=== PATIENT | male | born 1930 | race African-American/Black ===

== ENCOUNTER 2017-04-03 04:42 | Inpatient (IN) | payer MEDICARE, OTHER ==
[2017-04-03] VITALS (8 sets, daily range): BP systolic 136–189; BP diastolic 70–99
[~2017-04-03] VITALS: Ht 170.2 cm; Wt 63.5 kg
[2017-04-03] MEDS ORDERED: Albuterol ud Inhalation HHN ONE ×2 (05:00→06:45)
[2017-04-03 05:07] LABS: ABG BASE EXCESS -0.6; ABG PCO2 44.5 mmHg (35.0-45.0)
[2017-04-03 05:11] LABS: ABG ALLEN TEST POSITIVE
[2017-04-03] MEDS ORDERED: Solu-MEDROL 125mg Inj IVP ONE (05:15)
[2017-04-03 05:24] LABS: BASOPHILS % (AUTO) 0.7 % (0.0-2.0); EOSINOPHILS % (AUTO) 3.1 % (0.0-3.0); LYMPHOCYTES % (AUTO) 7.8 % (20.0-45.0); MEAN CORPUSCULAR HEMOGLOBIN 33.5 PG (27.0-31.0); MEAN CORPUSCULAR HGB CONC 34.1 G/DL (32.0-36.0); MEAN CORPUSCULAR VOLUME 98 FL (80-99); MONOCYTES % (AUTO) 9.3 % (1.0-10.0); NEUTROPHILS % (AUTO) 79.1 % (45.0-75.0); PLATELET COUNT 200 K/UL (150-450); RED BLOOD COUNT 4.54 M/UL (4.70-6.10); RED CELL DISTRIBUTION WIDTH 11.7 % (11.6-14.8); WHITE BLOOD COUNT 9.7 K/UL (4.8-10.8)
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
[2017-04-03 05:43] LABS: ANION GAP 10 (5-15); CALCIUM 9.3 mg/dL (8.6-10.2); CARBON DIOXIDE 30 mEQ/L (20-30); CHLORIDE 102 mEQ/L (98-107); CREATININE 1.4 mg/dL (0.7-1.2); HEMOLYSIS 4; POTASSIUM 3.6 mEQ/L (3.4-4.9); SODIUM 142 mEQ/L (135-145)
[2017-04-03] MEDS ORDERED: Ipratropium 0.02% Inh Soln 2.5ml UD HHN ONE (06:45)
[2017-04-03] MEDS ORDERED: LORazepam Inj 2mg/ml 1ml IV PRN ×2 (07:15→22:00)
[2017-04-03] MEDS ORDERED: DuoNeb 0.5-3(2.5)mg/3ml neb HHN PRN (07:15)
[2017-04-03] MEDS ORDERED: Ketorolac 30mg Inj IV PRN ×2 (07:15→22:00)
[2017-04-03] MEDS ORDERED: Morphine Sulfate 2mg/ml Inj IVP PRN ×2 (07:15→22:00)
[2017-04-03] MEDS ORDERED: Promethazine/Codeine 5ml UD ORAL PRN ×2 (07:15→22:00)
[2017-04-03] MEDS ORDERED: Nitroglycerin Subl 0.4mg tab (Bottle Of 25) SL PRN ×2 (07:15→21:45)
[2017-04-03] MEDS ORDERED: ATORVASTATIN CA40 MG ORAL (09:06)
[2017-04-03] MEDS ORDERED: PLAVIX75 MG ORAL (09:06)
[2017-04-03] MEDS ORDERED: ALLOPURINOL100 M1 ORAL (09:06)
[2017-04-03] MEDS ORDERED: AMLODIPINE BESYL5 MG ORAL (09:06)
[2017-04-03] MEDS ORDERED: TAMSULOSIN HCL0.4 MG ORAL (09:11)
[2017-04-03] MEDS: Ipratropium 0.02% Inh Soln 2.5ml UD HHN SCH ×3 (09:28→10:00)
[2017-04-03] MEDS: Albuterol ud Inhalation HHN SCH ×3 (09:28→10:00)
[2017-04-03] MEDS ORDERED: PROSCAR5 MG ORAL (09:41)
[2017-04-03] MEDS ORDERED: PANTOPRAZOLE SO40 MG ORAL (09:41)
[2017-04-03] MEDS ORDERED: ALBUTEROL SULF8.5 GM INH (09:42)
[2017-04-03] MEDS ORDERED: SYMBICORT 1601 PUFFS INH (09:42)
[2017-04-03] MEDS ORDERED: FLUTICASONE PRO16 G1 NASAL (09:43)
[2017-04-03] MEDS ORDERED: SPIRIVA18 MCG INH (09:43)
--- NOTE | 2017-04-03 09:49 | Diagnostic Imaging Report ---
Indication: Dyspnea Comparison: None A single view chest radiograph was obtained. Findings: No definite infiltrate or pulmonary vascular congestion identified. The heart is relatively normal in size. The aorta is mildly enlarged consistent with atherosclerotic vascular disease. The bones are osteopenic. Impression: No acute disease
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
[2017-04-03] MEDS ORDERED: Zosyn 3.375gm inj ONE (10:51)
[2017-04-03] MEDS ORDERED: Lidocaine 2% Visc 15ml soln ORAL ONE (11:00)
[2017-04-03] MEDS: Zosyn 3.375gm q8h **Extended infusion IVPB SCH ×4 (11:01→18:29)
[2017-04-03] MEDS: Theophylline ER 100mg ORAL SCH ×2 (11:04→21:04)
[2017-04-03] MEDS: Solu-MEDROL 125mg Inj IV SCH ×2 (11:53→18:30)
[2017-04-03] MEDS: Heparin 5000 units/ml inj SUBQ SCH ×2 (11:54→21:06)
[2017-04-03] MEDS ORDERED: Pneumococcal Vaccine 25mcg/0.5ml IM ONE (12:30)
[2017-04-03] MEDS ORDERED: Piperacillin/Tazobactam 2.25 GM in D5W 55 ML IV SCH (14:00)
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
--- NOTE | 2017-04-03 15:56 | History & Physical ---
History and Physical History & Physicial Pancho Meng MD Apr 03, 2017 15:56
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
[2017-04-03] MEDS ORDERED: Tamsulosin 0.4mg cap ORAL SCH (21:00)
[2017-04-03] MEDS ORDERED: Atorvastatin 80mg tab ORAL SCH (21:00)
[2017-04-03] MEDS: DuoNeb 0.5-3(2.5)mg/3ml neb HHN PRN (22:22)
[2017-04-04] VITALS: BP 157/82
[2017-04-04] MEDS ORDERED: Zosyn 3.375gm inj ONE (00:03)
[2017-04-04] MEDS: Piperacillin/Tazobactam 3.375 GM in D5W 110 ML IVPB SCH ×3 (00:12→16:57)
[2017-04-04] MEDS: Solu-MEDROL 125mg Inj IV SCH ×4 (00:12→17:03)
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
[2017-04-04 04:00] VITALS: BP 159/81
[2017-04-04 08:00] VITALS: BP 157/85
[2017-04-04] MEDS: Theophylline ER 100mg ORAL SCH ×2 (08:10→20:03)
[2017-04-04] MEDS: Allopurinol 100mg Tab ORAL SCH (08:10)
[2017-04-04] MEDS: Heparin 5000 units/ml inj SUBQ SCH ×2 (08:12→20:05)
[2017-04-04] MEDS ORDERED: Allopurinol 100mg Tab ORAL SCH (09:00)
[2017-04-04] MEDS: DuoNeb 0.5-3(2.5)mg/3ml neb HHN PRN (09:16)
[2017-04-04] MEDS: Chloraseptic Spray 20mL Bottle ORAL PRN (10:45)
[2017-04-04 12:00] VITALS: BP 156/79
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
[2017-04-04] MEDS ORDERED: DuoNeb 0.5-3(2.5)mg/3ml neb HHN ONE (14:15)
[2017-04-04] MEDS: DuoNeb 0.5-3(2.5)mg/3ml neb HHN SCH ×3 (14:34→23:15)
[2017-04-04] MEDS ORDERED: DuoNeb 0.5-3(2.5)mg/3ml neb HHN SCH (15:00)
[2017-04-04 16:00] VITALS: BP 148/76
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
[2017-04-04 20:00] VITALS: BP 149/73
[2017-04-04] MEDS: Atorvastatin 80mg tab ORAL SCH (20:04)
[2017-04-04] MEDS: Tamsulosin 0.4mg cap ORAL SCH (20:04)
[2017-04-05] VITALS (7 sets, daily range): BP systolic 144–188; BP diastolic 66–94
[2017-04-05] MEDS: Piperacillin/Tazobactam 3.375 GM in D5W 110 ML IVPB SCH ×3 (00:41→16:59)
[2017-04-05] MEDS: DuoNeb 0.5-3(2.5)mg/3ml neb HHN SCH ×6 (03:29→23:21)
[2017-04-05 07:18] LABS: MEAN CORPUSCULAR HEMOGLOBIN 32.8 PG (27.0-31.0); MEAN CORPUSCULAR HGB CONC 33.4 G/DL (32.0-36.0); MEAN CORPUSCULAR VOLUME 98 FL (80-99); MEAN PLATELET VOLUME 8.5 FL (6.5-10.1); PLATELET COUNT 214 K/UL (150-450); RED BLOOD COUNT 4.29 M/UL (4.70-6.10); RED CELL DISTRIBUTION WIDTH 11.9 % (11.6-14.8); WHITE BLOOD COUNT 20.9 K/UL (4.8-10.8)
[2017-04-05 08:01] LABS: ALANINE AMINOTRANSFERASE 24 U/L (3-41); ALBUMIN/GLOBULIN RATIO 1.4 (1.0-2.7); ANION GAP 10 (5-15); ASPARTATE AMINO TRANSFERASE 33 U/L (5-40); CALCIUM 10.4 mg/dL (8.6-10.2); CARBON DIOXIDE 30 mEQ/L (20-30); CHLORIDE 99 mEQ/L (98-107); CREATININE 1.5 mg/dL (0.7-1.2); HEMOLYSIS 5; POTASSIUM 4.6 mEQ/L (3.4-4.9); SODIUM 139 mEQ/L (135-145); TOTAL PROTEIN 7.3 g/dL (6.6-8.7)
[2017-04-05 08:48] LABS: BAND NEUTROPHILS % (MANUAL) 0 % (0-8); BASOPHILS % (MANUAL) 0 % (0-2); EOSINOPHILS % (MANUAL) 0 % (0-3); LYMPHOCYTES % (MANUAL) 4 % (20-45); NEUTROPHILS % (MANUAL) 92 % (45-75); PLATELET ESTIMATE ADEQUATE; PLATELET MORPHOLOGY NORMAL; TOTAL CELLS COUNTED 100
[2017-04-05] MEDS: Theophylline ER 100mg ORAL SCH ×2 (09:08→21:20)
[2017-04-05] MEDS: Allopurinol 100mg Tab ORAL SCH (09:09)
[2017-04-05] MEDS: Heparin 5000 units/ml inj SUBQ SCH ×2 (09:12→21:24)
[2017-04-05] MEDS: Solu-MEDROL 125mg Inj IV SCH (09:27)
--- NOTE | 2017-04-05 09:58 | Diagnostic Imaging Report ---
Indications: Dyspnea Technique: Portable AP chest Findings: Comparison: 04/03/2017 Cardiac silhouette remains normal in size. Pulmonary vasculature remains within normal limits. Inspiratory effort has improved. Calcified nodules again noted in both lungs. Lungs and pleura remain otherwise clear. Mild calcification of the aortic arch is noted. IMPRESSION: No evidence of acute disease, unchanged Stable chronic changes as described
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
[2017-04-05] MEDS ORDERED: NS 275ml ONE (14:01)
[2017-04-05] MEDS ORDERED: Tubing IV Secondary IV ONE (14:01)
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
[2017-04-05] MEDS: Tamsulosin 0.4mg cap ORAL SCH (21:20)
[2017-04-05] MEDS: Atorvastatin 80mg tab ORAL SCH (21:21)
[2017-04-06] VITALS: BP 159/93
[2017-04-06] MEDS: Piperacillin/Tazobactam 3.375 GM in D5W 110 ML IVPB SCH ×3 (00:48→16:41)
[2017-04-06] MEDS: DuoNeb 0.5-3(2.5)mg/3ml neb HHN SCH ×6 (03:39→23:12)
[2017-04-06 04:00] VITALS: BP 155/80
[2017-04-06 07:23] LABS: MEAN CORPUSCULAR HEMOGLOBIN 33.8 PG (27.0-31.0); MEAN CORPUSCULAR HGB CONC 33.9 G/DL (32.0-36.0); MEAN CORPUSCULAR VOLUME 100 FL (80-99); MEAN PLATELET VOLUME 8.3 FL (6.5-10.1); PLATELET COUNT 225 K/UL (150-450); RED CELL DISTRIBUTION WIDTH 12.6 % (11.6-14.8); WHITE BLOOD COUNT 14.3 K/UL (4.8-10.8)
[2017-04-06 07:47] LABS: ANION GAP 11 (5-15); CALCIUM 10.2 mg/dL (8.6-10.2); CARBON DIOXIDE 32 mEQ/L (20-30); CHLORIDE 98 mEQ/L (98-107); CREATININE 1.3 mg/dL (0.7-1.2); HEMOLYSIS 11; POTASSIUM 3.7 mEQ/L (3.4-4.9); SODIUM 141 mEQ/L (135-145)
[2017-04-06 08:00] VITALS: BP 127/81
[2017-04-06] MEDS: Theophylline ER 100mg ORAL SCH ×2 (09:00→20:44)
[2017-04-06] MEDS: Allopurinol 100mg Tab ORAL SCH (09:00)
[2017-04-06] MEDS: Heparin 5000 units/ml inj SUBQ SCH ×2 (09:01→20:45)
[2017-04-06] MEDS: Solu-MEDROL 125mg Inj IV SCH (09:02)
[2017-04-06] MEDS: Chloraseptic Spray 20mL Bottle ORAL PRN (09:12)
[2017-04-06 10:08] LABS: BAND NEUTROPHILS % (MANUAL) 0 % (0-8); BASOPHILS % (MANUAL) 0 % (0-2); EOSINOPHILS % (MANUAL) 0 % (0-3); LYMPHOCYTES % (MANUAL) 8 % (20-45); MACROCYTES 1+; NEUTROPHILS % (MANUAL) 77 % (45-75); PLATELET ESTIMATE ADEQUATE; PLATELET MORPHOLOGY NORMAL; TOTAL CELLS COUNTED 100
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
[2017-04-06 12:21] VITALS: BP 152/87
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
[2017-04-06 16:19] VITALS: BP 163/89
[2017-04-06 20:00] VITALS: BP 185/87
[2017-04-06] MEDS: Tamsulosin 0.4mg cap ORAL SCH (20:44)
[2017-04-06] MEDS: Atorvastatin 80mg tab ORAL SCH (20:44)
[2017-04-07] VITALS: BP 157/89
[2017-04-07] MEDS: Piperacillin/Tazobactam 3.375 GM in D5W 110 ML IVPB SCH ×2 (00:24→09:02)
[2017-04-07 04:00] VITALS: BP 118/70
[2017-04-07] MEDS: DuoNeb 0.5-3(2.5)mg/3ml neb HHN SCH ×2 (04:18→07:29)
[2017-04-07 07:50] LABS: ANION GAP 11 (5-15); CALCIUM 10.3 mg/dL (8.6-10.2); CARBON DIOXIDE 33 mEQ/L (20-30); CHLORIDE 97 mEQ/L (98-107); CREATININE 1.2 mg/dL (0.7-1.2); HEMOLYSIS 17; POTASSIUM 4.1 mEQ/L (3.4-4.9); SODIUM 141 mEQ/L (135-145)
[2017-04-07 07:53] LABS: BASOPHILS % (AUTO) 0.8 % (0.0-2.0); EOSINOPHILS % (AUTO) 0.6 % (0.0-3.0); LYMPHOCYTES % (AUTO) 6.8 % (20.0-45.0); MEAN CORPUSCULAR HGB CONC 32.8 G/DL (32.0-36.0); MEAN CORPUSCULAR VOLUME 101 FL (80-99); MEAN PLATELET VOLUME 7.8 FL (6.5-10.1); NEUTROPHILS % (AUTO) 82.9 % (45.0-75.0); PLATELET COUNT 271 K/UL (150-450); RED CELL DISTRIBUTION WIDTH 12.6 % (11.6-14.8); WHITE BLOOD COUNT 13.9 K/UL (4.8-10.8)
[2017-04-07 08:09] VITALS: BP 156/84
[2017-04-07] MEDS ORDERED: Solu-MEDROL 40mg Inj IVP SCH (09:00)
[2017-04-07] MEDS: Theophylline ER 100mg ORAL SCH (09:02)
[2017-04-07] MEDS: Allopurinol 100mg Tab ORAL SCH (09:02)
[2017-04-07 09:03] VITALS: BP 156/84
[2017-04-07] MEDS: Heparin 5000 units/ml inj SUBQ SCH (09:06)
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
--- NOTE | 2017-04-08 16:34 | Cardiology Report ---
APPROVED REPORT EKG Measurement Heart [id number] Normal sinus rhythm Normal ECG
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
== END 2017-04-07 11:45 | disposition home or self-care (01) | DRG 192 ==
LOC: EDBD 04:42 → EMR 04:54 → 4E 06:02 → EDBEDREQ 06:25 → 2E 11:19 → 4E 21:28
DX: J44.1 Chronic obstructive pulmonary disease with (acute) exacerbation (principal); J70.5 Respiratory conditions due to smoke inhalation; I10 Essential (primary) hypertension; M10.9 Gout, unspecified; F17.200 Nicotine dependence, unspecified, uncomplicated; E78.5 Hyperlipidemia, unspecified; N40.0 Benign prostatic hyperplasia without lower urinary tract symptoms; I25.10 Atherosclerotic heart disease of native coronary artery without angina pectoris; J20.9 Acute bronchitis, unspecified; J44.0 Chronic obstructive pulmonary disease with (acute) lower respiratory infection
CPT/HCPCS: 36415; 36600; 71010; 80048; 80053; 82803; 83880; 85007; 85025; 87070; 87181; 87205; 93005; 94640; 94664; 94760; J7620